=== PATIENT | male | born 1965 | race African-American/Black ===

== ENCOUNTER 2018-02-26 08:49 | Day surgery (SDC) | payer OTHER ==
[2018-02-25 13:03] VITALS: BMI 27.6
[2018-02-26 10:28] VITALS: TEMP 98
[2018-02-26 11:19] VITALS: BP 117/82; PULSE 86
--- NOTE | 2018-03-01 10:18 | PATH ---
Surgical Pathology Report Patient Name: SUSAN ORTIZ [facility]. Rec. #: [id number] /Age/Gender: 1965 (Age: 53) / M Account: [id number] Location: [facility]-ENDOSCOPY Taken: 02/26/2018 Received: 02/26/2018 Reported: 03/01/2018 Physicians: Stephanie Orlando M.D. Specimen(s) Received RECTAL POLYP Clinical History Screening colonoscopy Postoperative diagnosis: Rectal polyp Final Diagnosis RECTAL POLYP, BIOPSY: HYPERPLASTIC POLYP. Electronically Signed Sunita Rubio M.D. Gross Description Received in formalin, labeled "biopsy rectal polyp" are 3 smyth, irregular portions of soft tissue ranging from 0.1-0.4 cm. in greatest dimension. The specimens are submitted in toto in one cassette. /02/26/201802/26/2018
== END 2018-02-26 11:18 | disposition home or self-care (01) ==
LOC: JASU-ENDO 08:49
PROVIDERS: ATTEND Internal Medicine Gastroenterology
PROC: 0DBP8ZX Excision of Rectum, Via Natural or Artificial Opening Endoscopic, Diagnostic (ICD-10-PCS; principal; 2018-02-26 09:15)
DX: Z12.11 Encounter for screening for malignant neoplasm of colon (principal); K62.1 Rectal polyp; K64.8 Other hemorrhoids
CPT/HCPCS: 88305-TC